=== PATIENT | female | born 1940 | race Caucasian/White ===

== ENCOUNTER 2016-11-01 19:05 | Emergency (ER) | payer MEDICARE, BC ==
[~2016-11-01] VITALS: Ht 157.5 cm; Wt 62.5 kg
[~2016-11-01 19:05] MED LIST: AMLO-168 PO; ASPI325T PO; FERR1TAB58 PO; MACR100C2 PO; METR-1 PO; POTA-163 PO; PROP60TA PO; PROT40TA PO; ROSU1TAB8 PO; VENL75TA PO; ZOFR4TAB3 SL; ZYRT10TA PO
[2016-11-01 19:42] VITALS: BP 124/56; PULSE 59; RESP 18; TEMP 97.7; O2SAT 96
--- NOTE | 2016-11-01 20:11 | PD ---
HPI Chief Complaint: Fall Time Seen by Provider: 19:56 Travel History International Travel<30 days: No Contact w/Intl Traveler<30days: No Traveled to known affect area: No History of Present Illness HPI This 76-year-old female had a fall and sustained a laceration of the left eyebrow. She says she was walking her dog and pulled down by the leash. She hit her head on the sidewalk. We are not sure if there was a loss of consciousness. sHe has had cataract surgery PFSH Past Medical History Hx Anticoagulant Therapy: Yes Arthritis: Yes Depression: Yes Heart Rhythm Problems: No Cancer: Yes (breast) Cardiac Catheterization: Yes Cardiovascular Problems: Yes High Cholesterol: Yes Chemotherapy: Yes Congestive Heart Failure: No Diabetes: No Diminished Hearing: Yes (hearing aids) Endocrine: Yes Gastrointestinal Disorders: Yes GERD: Yes Genitourinary: Yes Hypertension: Yes Immune Disorder: No Implanted Vascular Access Dvce: Yes Musculoskeletal: Yes Neurologic: No Psychiatric: Yes Reproductive: No Respiratory: No Radiation Therapy: Yes Thyroid Disease: No Ulcer: Yes (H pylori) Menopausal: Yes : 6 Para: 2 Miscarriage: 4 Past Surgical History Abdominal Surgery: Yes Body Medical Devices: cardiac stent. Cholecystectomy: Yes Coronary Artery Bypass Graft: No Ear Surgery: No Endocrine Surgery: No Eye Surgery: No Gynecologic Surgery: Yes Hysterectomy: Yes (PARTIAL) Mastectomy: Yes (left lumpectomy) Oral Surgery: No Pacemaker: No Other Surgery: Yes (7 BREAST BIOPSIES) Family History Family Myocardial Infarction: Yes ([place]) Social History Alcohol Use: Yes (WINE ONCE A MONTH) Tobacco Use: Yes (LESS THAN A PPD) Substance Use: No Allergies-Medications (Allergen,Severity, Reaction): Coded Allergies: Sulfa (Verified Allergy, Severe, SORES IN MOUTH, 11/01/16) Ampicillin (Verified Allergy, Mild, Anaphylaxis, 11/01/16) Contrast Media (Verified Allergy, Mild, BOILS ON SKIN, 11/01/16) Iodine (Verified Allergy, Mild, BOILS ON SKIN, 11/01/16) Reported Meds & Prescriptions Reported Meds & Active Scripts Active Zofran Odt (Ondansetron Odt) 4 Mg Tab 4 Mg SL Q6HR PRN Potassium Chloride ER (Potassium Chloride) 20 Meq Tab 20 Meq PO DAILY Flagyl (Metronidazole) 500 Mg Tab 500 Mg PO BID 7 Days Macrobid (Nitrofurantoin Monoh/Nitrofur Macro) 100 Mg Cap 100 Mg PO BID 7 Days Reported Amlodipine-Valsartan 10-160 Mg Tab 1 Tab PO DAILY Rosuvastatin (Rosuvastatin Calcium) 20 Mg Tab 20 Mg PO DAILY Effexor (Venlafaxine HCl) 75 Mg Tab 75 Mg PO DAILY Propranolol (Propranolol HCl) 60 Mg Tab 60 Mg PO Q12HR Iron (Ferrous Sulfate) 50 Mg Tab 65 Mg PO DAILY Zyrtec Allergy (Cetirizine HCl) 10 Mg Tab 10 Mg PO DAILY Aspirin 325 Mg Tab 325 Mg PO DAILY Protonix (Pantoprazole Sodium) 40 Mg Tab 40 Mg PO DAILY Review of Systems General / Constitutional: No: Fever, Chills Eyes: No: Diploplia, Blurred Vision HENT: Positive: Headaches Cardiovascular: No: Chest Pain or Discomfort Respiratory: No: Cough Gastrointestinal: No: Nausea, Vomiting Genitourinary: No: Urgency Skin: No Rash, No Itching Physical Exam Narrative GENERAL: Well-developed female SKIN: Warm and dry. HEAD: . Normocephalic. He is a 2 cm laceration in the left eyebrow EYES: Pupils equal and round. No scleral icterus. No injection or drainage. Left pupil is not reactive. There appears to be an intraocular lens ENT: No nasal bleeding or discharge. Mucous membranes pink and moist. NECK: Trachea midline. No JVD. There is no midline tenderness of the neck CARDIOVASCULAR: Regular rate and rhythm. No murmur appreciated. RESPIRATORY: No accessory muscle use. Clear to auscultation. Breath sounds equal bilaterally. GASTROINTESTINAL: Abdomen soft, non-tender, nondistended. Hepatic and splenic margins not palpable. MUSCULOSKELETAL: No obvious deformities. No clubbing. No cyanosis. No edema. NEUROLOGICAL: Awake and alert. No obvious cranial nerve deficits. Motor grossly within normal limits. Normal speech. PSYCHIATRIC: Appropriate mood and affect; insight and judgment normal. Data Data Last Documented VS Vital Signs Date Time Temp Pulse Resp B/P Pulse Ox O2 Delivery O2 Flow Rate FiO2 11/01/16 20:31 20 11/01/16 19:42 97.7 59 124/56 96 Orders Tetanus/Diphtheria Tox Adult (Tetanus/Di (11/01/16 20:15) Lidocai-Epi 1%-1:100,000 Inj (Xylocaine- (11/01/16 20:15) Ct Brain W/O Iv Contrast(Rout) (11/01/16 20:03) MDM Medical Decision Making Medical Screen Exam Complete: Yes Emergency Medical Condition: Yes Medical Record Reviewed: Yes Differential Diagnosis Differential includes subdural, skull fracture, laceration eyebrow Narrative Course Cervical spine has been cleared by nexus criteria. Tetanus has been updated. CT scan has been read as negative for fracture or hemorrhage. Diagnosis Primary Impression: Laceration of eyebrow Qualified Code: S01.112A - Laceration of eyebrow, left, initial encounter Additional Instructions: suture removal 7 days Disposition: 01 DISCHARGE HOME Condition: Stable Shakir Flores MD Nov 01, 2016 20:11
[2016-11-01] MEDS ORDERED: TETANUS/DIPHTHERIA TOXOID ADULT 0.5 ML VIAL IM ONE (20:15)
[2016-11-01] MEDS ORDERED: LIDOCAINE 1%/EPINEPHrine 1:100,000 SOLN 20 ML VIAL INFIL ONE (20:15)
--- NOTE | 2016-11-01 20:32 | RADHPO ---
EXAM DATE/TIME: 11/01/2016 20:08 [facility] COMPARISON: CT BRAIN W/O CONTRAST, December 15, 2015, 13:17. INDICATIONS : Trauma. Fall. Left frontal laceration. RADIATION DOSE: 61.03 CTDIvol (mGy) MEDICAL HISTORY : Hypertension. SURGICAL HISTORY : None. ENCOUNTER: Initial ACUITY: 1 day PAIN SCALE: 0/10 LOCATION: Left frontal TECHNIQUE: Multiple contiguous axial images were obtained of the head. Using automated exposure control and adj ustment of the mA and/or kV according to patient size, radiation dose was kept as low as reasonably a chievable to obtain optimal diagnostic quality images. FINDINGS: CEREBRUM: The ventricles are normal for age. No evidence of midline shift, mass lesion, hemorrhage or acute in farction. No extra-axial fluid collections are seen. Chronic low attenuation again seen in the periv entricular white matter. POSTERIOR FOSSA: The cerebellum and brainstem are intact. The 4th ventricle is midline. The cerebellopontine angle i s unremarkable. EXTRACRANIAL: Right mastoid sclerosis and considerable opacification of the air cells again noted, similar to befor e. SKULL: The calvaria is intact. No evidence of skull fracture. CONCLUSION: 1. No bleed or other acute intracranial abnormality. 2. Chronic white matter changes. 3. Apparent chronic right mastoiditis. Benjie Kamara MD on November 01, 2016 at 20:29 Board Certified Radiologist. This report was verified electronically.
--- NOTE | 2016-11-01 20:42 | PD ---
Physical Exam Date Seen by Provider: Nov 01, 2016 Time Seen by Provider: 20:39 Narrative Patient seen for fall with laceration to the left eyebrow. I was asked to repair the laceration to the left eyebrow. Dr. Flores's note for further evaluation and treatment. Data Data Last Documented VS Vital Signs Date Time Temp Pulse Resp B/P Pulse Ox O2 Delivery O2 Flow Rate FiO2 11/01/16 20:31 20 11/01/16 19:42 97.7 59 124/56 96 Orders Tetanus/Diphtheria Tox Adult (Tetanus/Di (11/01/16 20:15) Lidocai-Epi 1%-1:100,000 Inj (Xylocaine- (11/01/16 20:15) Ct Brain W/O Iv Contrast(Rout) (11/01/16 20:03) MDM Medical Record Reviewed: Yes Supervised Visit with CARMENCITA: Yes Differential Diagnosis Fall. Laceration. Head injury. Narrative Course Laceration is repaired. See procedure note. Procedures Procedure Narrative LACERATION LOCATION: Left eyebrow LENGTH: 3 cm NUMBER OF STITCHES/JANE: 1 vertical mattress and 2 interrupted horizontal mattress REPAIR: The area of the laceration was prepped with Betadine and sterilely draped. The laceration was infiltrated with 2.5 mL's 1% lidocaine with epi.. The wound was copiously irrigated and explored without evidence of foreign body , tendon injury or neurovascular injury. The wound was closed using 5-0 Prolene. This was a single layer repair. The patient was advised to keep the wound clean and dry. Patient tolerated the procedure well. LACERATION LOCATION: Left lateral eyebrow LENGTH: 0.5 cm NUMBER OF STITCHES/JANE: 1 horizontal mattress REPAIR: The area of the laceration was prepped with Betadine and sterilely draped. The laceration was infiltrated with 1.5 mL's 1% lidocaine with epi the wound was copiously irrigated and explored without evidence of foreign body, tendon injury or neurovascular injury. The wound was closed using 5-0 Prolene. This was a single layer repair. A sterile dressing was applied. The patient was advised to keep the dressing clean and dry. Patient tolerated the procedure well. Condition: Stable Rey Thornton Nov 01, 2016 20:42
[2016-11-01 21:24] VITALS: BP 135/59
== END 2016-11-01 21:27 | disposition home or self-care (01) ==
LOC: PHED 19:05
DX: S01.112A Laceration without foreign body of left eyelid and periocular area, initial encounter (principal); I10 Essential (primary) hypertension; E78.00 Pure hypercholesterolemia, unspecified; Y93.K1 Activity, walking an animal; W18.39XA Other fall on same level, initial encounter; Y93.9 Activity, unspecified; Y92.9 Unspecified place or not applicable; Y99.9 Unspecified external cause status; Z23 Encounter for immunization
CPT/HCPCS: 12013; 70450; 90471; 90714

== ENCOUNTER 2016-11-08 12:05 | Emergency (ER) | payer MEDICARE, BC ==
[~2016-11-08] VITALS: Ht 157.5 cm; Wt 61.0 kg
[2016-11-08 12:11] VITALS: BP 145/76; PULSE 68; RESP 20; TEMP 97.7; O2SAT 96
--- NOTE | 2016-11-08 12:21 | PD ---
HPI . suture removal Chief Complaint: Wound/Suture/Staple Re-Check Time Seen by Provider: 12:21 Travel History International Travel<30 days: No Contact w/Intl Traveler<30days: No Traveled to known affect area: No History of Present Illness HPI 76-year-old female here for suture removal. Sutures were placed on November 01, 2016. Total of 4 sutures were placed. She has no complaints. The area has healed well. PFSH Past Medical History Hx Anticoagulant Therapy: Yes Arthritis: Yes Depression: Yes Heart Rhythm Problems: No Cancer: Yes (breast) Cardiac Catheterization: Yes Cardiovascular Problems: Yes High Cholesterol: Yes Chemotherapy: Yes Congestive Heart Failure: No Diabetes: No Diminished Hearing: Yes (hearing aids) Endocrine: Yes Gastrointestinal Disorders: Yes GERD: Yes Genitourinary: Yes Hypertension: Yes Immune Disorder: No Implanted Vascular Access Dvce: Yes Musculoskeletal: Yes Neurologic: No Psychiatric: Yes Reproductive: No Respiratory: No Radiation Therapy: Yes Thyroid Disease: No Ulcer: Yes (H pylori) ?: Not Menopausal: Yes : 6 Para: 2 Miscarriage: 4 Past Surgical History Abdominal Surgery: Yes Body Medical Devices: cardiac stent. Cholecystectomy: Yes Coronary Artery Bypass Graft: No Ear Surgery: No Endocrine Surgery: No Eye Surgery: No Gynecologic Surgery: Yes Hysterectomy: Yes (PARTIAL) Mastectomy: Yes (left lumpectomy) Oral Surgery: No Pacemaker: No Other Surgery: Yes (7 BREAST BIOPSIES) Social History Alcohol Use: Yes (WINE ONCE A MONTH) Tobacco Use: Yes (LESS THAN A PPD) Substance Use: No Allergies-Medications (Allergen,Severity, Reaction): Coded Allergies: Sulfa (Verified Allergy, Severe, SORES IN MOUTH, 11/08/16) Ampicillin (Verified Allergy, Mild, Anaphylaxis, 11/08/16) Contrast Media (Verified Allergy, Mild, BOILS ON SKIN, 11/08/16) Iodine (Verified Allergy, Mild, BOILS ON SKIN, 11/08/16) Reported Meds & Prescriptions Reported Meds & Active Scripts Active Zofran Odt (Ondansetron Odt) 4 Mg Tab 4 Mg SL Q6HR PRN Potassium Chloride ER (Potassium Chloride) 20 Meq Tab 20 Meq PO DAILY Flagyl (Metronidazole) 500 Mg Tab 500 Mg PO BID 7 Days Macrobid (Nitrofurantoin Monoh/Nitrofur Macro) 100 Mg Cap 100 Mg PO BID 7 Days Reported Amlodipine-Valsartan 10-160 Mg Tab 1 Tab PO DAILY Rosuvastatin (Rosuvastatin Calcium) 20 Mg Tab 20 Mg PO DAILY Effexor (Venlafaxine HCl) 75 Mg Tab 75 Mg PO DAILY Propranolol (Propranolol HCl) 60 Mg Tab 60 Mg PO Q12HR Iron (Ferrous Sulfate) 50 Mg Tab 65 Mg PO DAILY Zyrtec Allergy (Cetirizine HCl) 10 Mg Tab 10 Mg PO DAILY Aspirin 325 Mg Tab 325 Mg PO DAILY Protonix (Pantoprazole Sodium) 40 Mg Tab 40 Mg PO DAILY Review of Systems General / Constitutional: No: Fever Eyes: No: Visual changes HENT: No: Headaches Cardiovascular: No: Chest Pain or Discomfort Respiratory: No: Shortness of Breath Gastrointestinal: No: Abdominal Pain Genitourinary: No: Dysuria Musculoskeletal: No: Pain Skin: No Rash Neurologic: No: Weakness Psychiatric: No: Depression Endocrine: No: Polydipsia Hematologic/Lymphatic: No: Easy Bruising Physical Exam Narrative GENERAL: AAO x 3, no acute distress, Well-nourished, well-developed patient. SKIN: Warm and dry. No visible rashes or bruising. 4 sutures in left eye brow, healed well, no wound dehiscence, ecchymosis is resolving around the left eye HEAD: Normocephalic and atraumatic. EYES: No scleral icterus. No injection or drainage. ENT: No nasal drainage noted. Mucous membranes pink. Airway patent. NECK: Supple, trachea midline. No JVD. CARDIOVASCULAR: Regular rate and rhythm without murmurs, gallops, or rubs. RESPIRATORY: Breath sounds equal bilaterally. No accessory muscle use. No rhonchi or rales. GASTROINTESTINAL: Abdomen soft, non-tender, nondistended. EXTREMITIES: No cyanosis or edema. BACK: Nontender without obvious deformity. No CVA tenderness. PSYCH: AAO x 3, normal affect. Data Data Last Documented VS Vital Signs Date Time Temp Pulse Resp B/P Pulse Ox O2 Delivery O2 Flow Rate FiO2 11/08/16 12:11 97.7 68 20 145/76 96 MDM Medical Decision Making Medical Screen Exam Complete: Yes Emergency Medical Condition: Yes Medical Record Reviewed: Yes Differential Diagnosis Suture removal, wound dehiscence, cellulitis Narrative Course 76-year-old female here for suture removal. Sutures were placed on November 01, 2016. Total of 4 sutures were placed. She has no complaints. The area has healed well. Patient seen and examined. Wound is healed without any evidence of dehiscence or cellulitis 4 sutures removed Patient tolerated without incident Patient verbalized understanding of instructions, questions were answered, and thanked me for their care. I advised them if their condition worsens, please return to the nearest emergency room for further care. Diagnosis Primary Impression: Encounter for removal of sutures Patient Instructions: General Instructions Additional Instructions: Please return to emergency department if your symptoms return or worsen. Follow up with your primary care provider. Med/Other Pt SpecificInfo: No Change to Meds Disposition: 01 DISCHARGE HOME Condition: Stable Joann Chairez Nov 08, 2016 12:21
== END 2016-11-08 12:35 | disposition home or self-care (01) ==
LOC: PHEFT 12:05
DX: Z48.02 Encounter for removal of sutures (principal)
CPT/HCPCS: 99281

== ENCOUNTER 2017-05-27 15:07 | Emergency (ER) | payer MEDICARE, BC ==
[~2017-05-27] VITALS: Ht 160 cm; Wt 70.0 kg
[2017-05-27 15:20] VITALS: BP 173/72; PULSE 67; RESP 14; TEMP 98.7; O2SAT 98
[2017-05-27 15:30] VITALS: O2SAT 98
[2017-05-27 15:47] LABS: AUTOMATED NEUTROPHIL # 4.8 TH/MM3 (1.8-7.7); BASOPHIL % 0.5 % (0.0-2.0); EOSINOPHIL # 0.2 TH/MM3 (0-0.4); EOSINOPHIL % 3.1 % (0.0-4.0); HEMATOCRIT 42.9 % (35.0-46.0); HEMO FLAGS DIFF FINAL; LYMPH % 17.7 % (9.0-44.0); LYMPHOCYTE # 1.2 TH/MM3 (1.0-4.8); MEAN CELL VOLUME 104.6 FL (80.0-100.0); MEAN CORPUSCULAR HEMOGLOBIN 35.4 PG (27.0-34.0); MEAN CORPUSCULAR HGB CONC 33.8 % (32.0-36.0); MONO % 5.4 % (0.0-8.0); NEUT % 73.3 % (16.0-70.0); PLATELET COUNT 187 TH/MM3 (150-450); RED CELL DISTRIBUTION WIDTH 15.4 % (11.6-17.2); WHITE BLOOD COUNT 6.6 TH/MM3 (4.0-11.0)
[2017-05-27 15:57] LABS: POTASSIUM 3.5 MEQ/L (3.5-5.1)
[2017-05-27 16:01] LABS: BICARBONATE 23.6 MEQ/L (21.0-32.0)
--- NOTE | 2017-05-27 16:03 | PD ---
HPI Chief Complaint: Dizziness Time Seen by Provider: 15:18 Travel History International Travel<30 days: No Contact w/Intl Traveler<30days: No Traveled to known affect area: No History of Present Illness HPI 77 y/o female presents with getting lightheaded and nauseous that started this morning at 10:30. She states she had not eaten breakfast but that is typical for her when she went to make herself lunch and she progressively got worse and had to start crawling. She called 911 and they brought her in this afternoon. She states she did not fall down or hit her head. She states she feels fine here at rest but is nervous to get up as this may make her symptoms recur. She states that she had only had a glass of iced tea all day today. She denies any other concurrent complaints. PFSH Past Medical History Hx Anticoagulant Therapy: Yes Arthritis: Yes Depression: Yes Heart Rhythm Problems: No Cancer: Yes (breast) Cardiac Catheterization: Yes Cardiovascular Problems: Yes High Cholesterol: Yes Chemotherapy: Yes Congestive Heart Failure: No Diabetes: No Diminished Hearing: Yes (hearing aids) Endocrine: Yes Gastrointestinal Disorders: Yes GERD: Yes Genitourinary: Yes Hypertension: Yes Immune Disorder: No Implanted Vascular Access Dvce: Yes Musculoskeletal: Yes Neurologic: No Psychiatric: Yes Reproductive: No Respiratory: No Radiation Therapy: Yes Thyroid Disease: No Ulcer: Yes (H pylori) Tetanus Vaccination: < 5 Years Influenza Vaccination: Yes Menopausal: Yes : 6 Para: 2 Miscarriage: 4 Past Surgical History Abdominal Surgery: Yes Body Medical Devices: cardiac stent. Cholecystectomy: Yes Coronary Artery Bypass Graft: No Ear Surgery: No Endocrine Surgery: No Eye Surgery: No Gynecologic Surgery: Yes Hysterectomy: Yes (PARTIAL) Mastectomy: Yes (left lumpectomy) Oral Surgery: No Pacemaker: No Other Surgery: Yes (7 BREAST BIOPSIES, LUMPECTOMY X 7) Family History Family Myocardial Infarction: Yes ([place]) Social History Alcohol Use: Yes (WINE ONCE A MONTH) Tobacco Use: Yes (1 PPD) Substance Use: No Allergies-Medications (Allergen,Severity, Reaction): Coded Allergies: Sulfa (Sulfonamide Antibiotics) (Unverified Allergy, Severe, SORES IN MOUTH, 04/11/17) ampicillin (Unverified Allergy, Mild, Anaphylaxis, 04/11/17) diatrizoate meglumine (Unverified Allergy, Mild, BOILS ON SKIN, 04/11/17) gadobenic acid (Unverified Allergy, Mild, BOILS ON SKIN, 04/11/17) gadodiamide (Unverified Allergy, Mild, BOILS ON SKIN, 04/11/17) gadoteridol (Unverified Allergy, Mild, BOILS ON SKIN, 04/11/17) iodine (Unverified Allergy, Mild, BOILS ON SKIN, 04/11/17) iodixanol (Unverified Allergy, Mild, BOILS ON SKIN, 04/11/17) iohexol (Unverified Allergy, Mild, BOILS ON SKIN, 04/11/17) potassium iodide (Unverified Allergy, Mild, BOILS ON SKIN, 04/11/17) povidone-iodine (Unverified Allergy, Mild, BOILS ON SKIN, 04/11/17) sodium iodide (Unverified Allergy, Mild, BOILS ON SKIN, 04/11/17) sodium iodide (Unverified Allergy, Mild, BOILS ON SKIN, 04/11/17) Reported Meds & Prescriptions Reported Meds & Active Scripts Active Zofran Odt (Ondansetron Odt) 4 Mg Tab 4 Mg SL Q6HR PRN Potassium Chloride ER (Potassium Chloride) 20 Meq Tab 20 Meq PO DAILY Flagyl (Metronidazole) 500 Mg Tab 500 Mg PO BID 7 Days Macrobid (Nitrofurantoin Monoh/Nitrofur Macro) 100 Mg Cap 100 Mg PO BID 7 Days Reported Amlodipine-Valsartan 10-160 Mg Tab 1 Tab PO DAILY Rosuvastatin (Rosuvastatin Calcium) 20 Mg Tab 20 Mg PO DAILY Effexor (Venlafaxine HCl) 75 Mg Tab 75 Mg PO DAILY Propranolol (Propranolol HCl) 60 Mg Tab 60 Mg PO Q12HR Iron (Ferrous Sulfate) 50 Mg Tab 65 Mg PO DAILY Zyrtec Allergy (Cetirizine HCl) 10 Mg Tab 10 Mg PO DAILY Aspirin 325 Mg Tab 325 Mg PO DAILY Protonix (Pantoprazole Sodium) 40 Mg Tab 40 Mg PO DAILY Review of Systems Except as stated in HPI: all other systems reviewed are Neg Physical Exam Narrative GENERAL: Well-nourished, well-developed patient. SKIN: Warm and dry. HEAD: Normocephalic and atraumatic. EYES: No injection or drainage. ENT: No nasal drainage noted. NECK: Supple, trachea midline. CARDIOVASCULAR: Regular rate and rhythm RESPIRATORY: Breath sounds equal bilaterally. No accessory muscle use. GASTROINTESTINAL: Abdomen soft, non-tender, nondistended. EXTREMITIES: No edema. NEUROLOGICAL: Awake and alert. Motor and sensory grossly within normal limits. Normal speech. 5 out of 5 in all 4 extremities Data Data Last Documented VS Vital Signs Date Time Temp Pulse Resp B/P (MAP) Pulse Ox O2 Delivery O2 Flow Rate FiO2 05/27/17 18:14 60 14 170/74 (106) 98 Room Air 05/27/17 15:20 98.7 Orders Orders Magnesium (Mg) (05/27/17 15:26) Phosphorus (Po4) (05/27/17 15:26) Complete Blood Count With Diff (05/27/17 15:26) Basic Metabolic Panel (Bmp) (05/27/17 15:26) Urinalysis - C+S If Indicated (05/27/17 15:26) Act Partial Throm Time (Ptt) (05/27/17 15:26) Prothrombin Time / Inr (Pt) (05/27/17 15:26) Electrocardiogram (05/27/17 ) Iv Access Insert/Monitor (05/27/17 15:26) Ecg Monitoring (05/27/17 15:26) Oximetry (05/27/17 15:26) Ckmb (Isoenzyme) Profile (05/27/17 15:39) Troponin I (05/27/17 15:39) Chest, Single Ap (05/27/17 15:39) Type And Screen (05/27/17 15:39) Ct Brain W/O Iv Contrast(Rout) (05/27/17 ) Sodium Chlor 0.9% 1000 Ml Inj (Ns 1000 M (05/27/17 17:45) Red Blood Cells (Rbc) (05/27/17 15:40) Labs Laboratory Tests Test 05/27/17 15:32 05/27/17 15:37 05/27/17 16:10 White Blood Count 6.6 TH/MM3 Red Blood Count 4.10 MIL/MM3 Hemoglobin 14.5 GM/DL Hematocrit 42.9 % Mean Corpuscular Volume 104.6 FL Mean Corpuscular Hemoglobin 35.4 PG Mean Corpuscular Hemoglobin Concent 33.8 % Red Cell Distribution Width 15.4 % Platelet Count 187 TH/MM3 Mean Platelet Volume 8.4 FL Neutrophils (%) (Auto) 73.3 % Lymphocytes (%) (Auto) 17.7 % Monocytes (%) (Auto) 5.4 % Eosinophils (%) (Auto) 3.1 % Basophils (%) (Auto) 0.5 % Neutrophils # (Auto) 4.8 TH/MM3 Lymphocytes # (Auto) 1.2 TH/MM3 Monocytes # (Auto) 0.4 TH/MM3 Eosinophils # (Auto) 0.2 TH/MM3 Basophils # (Auto) 0.0 TH/MM3 CBC Comment DIFF FINAL Differential Comment Prothrombin Time 10.8 SEC Prothromb Time International Ratio 1.0 RATIO Activated Partial Thromboplast Time 27.5 SEC Blood Urea Nitrogen 10 MG/DL Creatinine 0.86 MG/DL Random Glucose 101 MG/DL Calcium Level 8.6 MG/DL Phosphorus Level 2.6 MG/DL Magnesium Level 2.0 MG/DL Sodium Level 140 MEQ/L Potassium Level 3.5 MEQ/L Chloride Level 109 MEQ/L Carbon Dioxide Level 23.6 MEQ/L Anion Gap 7 MEQ/L Estimat Glomerular Filtration Rate 64 ML/MIN Total Creatine Kinase 57 U/L Troponin I LESS THAN 0.02 NG/ML Urine Color YELLOW Urine Turbidity CLEAR Urine pH 6.0 Urine Specific [place] 1.011 Urine Protein 30 mg/dL Urine Glucose (UA) NEG mg/dL Urine Ketones NEG mg/dL Urine Occult Blood SMALL Urine Nitrite NEG Urine Bilirubin NEG Urine Leukocyte Esterase NEG Urine RBC 3-5 /hpf Urine WBC 0-2 /hpf Urine Squamous Epithelial Cells > 8 /hpf Urine Bacteria NONE /hpf Microscopic Urinalysis Comment CULT NOT INDICATED MDM Medical Decision Making Medical Screen Exam Complete: Yes Emergency Medical Condition: Yes Medical Record Reviewed: Yes (h confirmed) Interpretation(s) CBC & BMP Diagram 05/27/17 15:32 Calcium Level 8.6, Phosphorus Level 2.6, Magnesium Level 2.0 Differential Diagnosis Anemia, dehydration, hypoglycemia, orthostatic hypotension, UTI.... Narrative Course Will check labs, urinalysis, chest x-ray, CT brain and reevaluate ed workup no emergent, offered patient observation but wanting to go, denies any dizziness or concerns now.Patient denies any new complaints and states that they are feeling better. Patient happy with care, all questions answered. Patient knows that follow up is incumbent on them and to return to the emergency room immediately if new or worsening symptoms develop. Patient given strict return precautions, vitals reviewed and are normal, agrees to further workup as an outpatient. Diagnosis Primary Impression: Dizziness Patient Instructions: General Instructions Additional Instructions: Return as needed, eat 3 meals a day, keep hydrated, follow with primary Monday Med/Other Pt SpecificInfo: No Change to Meds Disposition: 01 DISCHARGE HOME Condition: Stable Mirella Maravilla MD May 27, 2017 16:03
[2017-05-27 16:19] VITALS: BP 175/81; PULSE 67; RESP 14; O2SAT 95
--- NOTE | 2017-05-27 16:37 | RADRPT ---
EXAM DATE/TIME: 05/27/2017 16:15 [facility] COMPARISON: CHEST SINGLE AP, December 15, 2015, 14:15. INDICATIONS : Dizziness. MEDICAL HISTORY : Hypertension. SURGICAL HISTORY : None. ENCOUNTER: Initial ACUITY: 1 day PAIN SCORE: 0/10 LOCATION: Bilateral chest FINDINGS: A single view of the chest demonstrates the lungs to be symmetrically aerated without evidence of mas s, infiltrate or effusion. The central bronchopulmonary markings are will delineated. The heart is normal size for AP technique. Osseous structures are intact. CONCLUSION: The lungs are clear. Chavez De Dios MD on May 27, 2017 at 16:35 Board Certified Radiologist. This report was verified electronically.
[2017-05-27 16:39] LABS: CREATINE KINASE 57 U/L (26-192)
--- NOTE | 2017-05-27 16:45 | RADRPT ---
EXAM DATE/TIME: 05/27/2017 16:30 [facility] COMPARISON: CT BRAIN W/O CONTRAST, November 01, 2016, 20:08. INDICATIONS : Dizziness.Nausea. RADIATION DOSE: 60.89 CTDIvol (mGy) MEDICAL HISTORY : Cardiovascular disease. Hypercholesterolemia. Hypertension.Ca breast SURGICAL HISTORY : Cholecystectomy. 7 lumpectomies. ENCOUNTER: Initial ACUITY: 1 day PAIN SCALE: 0/10 LOCATION: cranial TECHNIQUE: Multiple contiguous axial images were obtained of the head. Using automated exposure control and adj ustment of the mA and/or kV according to patient size, radiation dose was kept as low as reasonably a chievable to obtain optimal diagnostic quality images. DICOM format image data is available electro nically for review and comparison. FINDINGS: CEREBRUM: Ventricles are normal in size. Scattered areas of hypodensity in the mid and high convexity white ma tter, characteristic of ischemic change, is stable when compared to 11/01/16. There is good campos-white matter differentiation. No evidence of blood products, acute infarction, or mass. No evidence of e xtra-axial blood. POSTERIOR FOSSA: The cerebellum and brainstem are intact. The 4th ventricle is midline. The cerebellopontine angle i s unremarkable. EXTRACRANIAL: The visualized portion of the orbits is intact. SKULL: The calvaria is intact. No evidence of skull fracture. CONCLUSION: No acute findings in the brain. Chavez De Dios MD on May 27, 2017 at 16:42 Board Certified Radiologist. This report was verified electronically.
[2017-05-27 16:48] LABS: APTT (PATIENT) 27.5 SEC (24.3-30.1); PROTHROMBIN TIME - PATIENT 10.8 SEC (9.8-11.6)
[2017-05-27] MEDS ORDERED: SODIUM CHLOR 0.9% 1000 ML INJ 1,000 ML IV ONE (17:45)
[2017-05-27 17:48] VITALS: BP 165/77; PULSE 61; RESP 16; O2SAT 96
[2017-05-27 18:05] LABS: BLOOD, URINE SMALL (NEG); GLUCOSE,URINE NEG (NEG); KETONE, URINE NEG (NEG); NITRITE,URINE NEG (NEG)
[2017-05-27 18:14] VITALS: BP 170/74; PULSE 60; RESP 14; O2SAT 98
[2017-05-27 18:14] LABS: URINE COLOR YELLOW (YELLW/STRAW)
[2017-05-27 18:15] LABS: COMMENT (UR) CULT NOT INDICATED; CULTURE IF INDICATED CULT NOT INDICATED; SQUAMOUS EPITHELIAL CELL URINE > 8 /hpf (0-5); WBC, URINE 0-2 /hpf (0-5)
--- NOTE | 2017-05-28 01:19 | EKG ---
Date Performed: 05/27/2017 Time Performed: 15:49:39 PTAGE: 77 years EKG: SINUS BRADYCARDIA BORDERLINE ECG PREVIOUS TRACING : 12/15/2015 21.51 No significant change from previous tracing noted. DOCTOR: Teofilo Solano Interpretating Date/Time 05/28/2017 01:18:56
== END 2017-05-27 19:35 | disposition home or self-care (01) ==
LOC: PHED 15:07
DX: R42 Dizziness and giddiness (principal); R11.0 Nausea; R94.31 Abnormal electrocardiogram [ECG] [EKG]; I10 Essential (primary) hypertension; E78.00 Pure hypercholesterolemia, unspecified; H91.90 Unspecified hearing loss, unspecified ear; F17.200 Nicotine dependence, unspecified, uncomplicated; Z79.01 Long term (current) use of anticoagulants; Z87.39 Personal history of other diseases of the musculoskeletal system and connective tissue; Z86.59 Personal history of other mental and behavioral disorders; Z85.3 Personal history of malignant neoplasm of breast; Z86.79 Personal history of other diseases of the circulatory system; Z87.19 Personal history of other diseases of the digestive system; Z87.448 Personal history of other diseases of urinary system
CPT/HCPCS: 70450; 71010; 80048; 81001; 82550; 83735; 84100; 84484; 85025; 85610; 85730; 86850; 86900; 86901; 86920; 86921; 86922; 93005; 96360; 96361; 99285; J7030

== ENCOUNTER 2018-01-22 16:29 | Emergency (ER) | payer MEDICARE, BC ==
[~2018-01-22 16:29] MED LIST changes: +ASPI-183 PO; -ASPI325T PO
[2018-01-22 16:31] VITALS: BP 110/63; PULSE 66; RESP 16; TEMP 97.6; O2SAT 98
[2018-01-22] MEDS ORDERED: TRAZ50TA12 PO (16:48)
--- NOTE | 2018-01-22 16:59 | PD ---
HPI Chief Complaint: Laceration/Skin Injury Time Seen by Provider: 16:52 Travel History International Travel<30 days: No Contact w/Intl Traveler<30days: No Traveled to known affect area: No History of Present Illness HPI 77-year-old female here with a laceration to her scalp after a trip and fall yesterday evening. She reports she was walking out of the bathroom and tripped over the bathroom rug hitting her head on the door jam. She denies loss of consciousness but reports she was drinking at the time. She reports she showered cleansing the wound and covered with a towel. Today the wound was still bleeding therefore she came in for evaluation. She is reporting a mild generalized headache. Denies visual changes. No vomiting since the injury. No neck pain, chest pain, shortness of breath, abdominal pain, paresthesia or weakness of the extremities. Symptom severity is moderate. No aggravating or alleviating factors. PFSH Past Medical History Hx Anticoagulant Therapy: Yes Arthritis: Yes Depression: Yes Heart Rhythm Problems: No Cancer: Yes (breast) Cardiac Catheterization: Yes Cardiovascular Problems: Yes High Cholesterol: Yes Chemotherapy: Yes Congestive Heart Failure: No Diabetes: No Diminished Hearing: Yes (hearing aids) Endocrine: Yes Gastrointestinal Disorders: Yes GERD: Yes Genitourinary: Yes Hypertension: Yes Immune Disorder: No Implanted Vascular Access Dvce: Yes Musculoskeletal: Yes Neurologic: No Psychiatric: Yes Reproductive: No Respiratory: No Radiation Therapy: Yes Thyroid Disease: No Ulcer: Yes (H pylori) Menopausal: Yes : 6 Para: 2 Miscarriage: 4 Past Surgical History Abdominal Surgery: Yes Body Medical Devices: cardiac stent. Cholecystectomy: Yes Coronary Artery Bypass Graft: No Ear Surgery: No Endocrine Surgery: No Eye Surgery: No Gynecologic Surgery: Yes Hysterectomy: Yes (PARTIAL) Mastectomy: Yes (left lumpectomy) Oral Surgery: No Pacemaker: No Other Surgery: Yes (7 BREAST BIOPSIES, LUMPECTOMY X 7) Family History Family Myocardial Infarction: Yes ([place]) Social History Alcohol Use: Yes Tobacco Use: Yes (1 PPD) Substance Use: No Allergies-Medications (Allergen,Severity, Reaction): Coded Allergies: Sulfa (Sulfonamide Antibiotics) (Unverified Allergy, Severe, SORES IN MOUTH, 01/22/18) ampicillin (Unverified Allergy, Mild, Anaphylaxis, 01/22/18) diatrizoate meglumine (Unverified Allergy, Mild, BOILS ON SKIN, 01/22/18) gadobenic acid (Unverified Allergy, Mild, BOILS ON SKIN, 01/22/18) gadodiamide (Unverified Allergy, Mild, BOILS ON SKIN, 01/22/18) gadoteridol (Unverified Allergy, Mild, BOILS ON SKIN, 01/22/18) iodine (Unverified Allergy, Mild, BOILS ON SKIN, 01/22/18) iodixanol (Unverified Allergy, Mild, BOILS ON SKIN, 01/22/18) iohexol (Unverified Allergy, Mild, BOILS ON SKIN, 01/22/18) potassium iodide (Unverified Allergy, Mild, BOILS ON SKIN, 01/22/18) povidone-iodine (Unverified Allergy, Mild, BOILS ON SKIN, 01/22/18) sodium iodide (Unverified Allergy, Mild, BOILS ON SKIN, 01/22/18) sodium iodide (Unverified Allergy, Mild, BOILS ON SKIN, 01/22/18) Reported Meds & Prescriptions Reported Meds & Active Scripts Active Reported Trazodone (Trazodone HCl) 50 Mg Tab 50 Mg PO HS Amlodipine-Valsartan 10-160 Mg Tab 1 Tab PO DAILY Rosuvastatin (Rosuvastatin Calcium) 20 Mg Tab 20 Mg PO DAILY Propranolol (Propranolol HCl) 60 Mg Tab 60 Mg PO Q12HR Aspirin 325 Mg Tab 325 Mg PO DAILY Review of Systems Except as stated in HPI: all other systems reviewed are Neg General / Constitutional: No: Fever Eyes: No: Visual changes HENT: Positive: Headaches Cardiovascular: No: Chest Pain or Discomfort Respiratory: No: Shortness of Breath Gastrointestinal: No: Abdominal Pain Genitourinary: No: Dysuria Musculoskeletal: No: Pain Skin: No Rash Physical Exam Narrative GENERAL: Alert and well-appearing 77-year-old female. Patient smells of alcohol SKIN: Warm and dry. HEAD: Normocephalic. Large 10 cm flap laceration to the scalp EYES: Pupils equal, round, reactive to light. EOMs intact. No scleral icterus. No injection or drainage. NECK: Supple, trachea midline. No midline spine tenderness. Patient freely moving the neck. CARDIOVASCULAR: Regular rate and rhythm. No murmur appreciated. No chest wall tenderness. RESPIRATORY: Breath sounds equal bilaterally. No accessory muscle use. Even and equal chest rise. GASTROINTESTINAL: Abdomen soft, non-tender, nondistended. MUSCULOSKELETAL: No cyanosis, or edema. Normal strength and sensation in extremities BACK: Nontender without obvious deformity. No CVA tenderness. NEUROLOGICAL: Awake and alert. No obvious cranial nerve deficit. Motor and sensory grossly within normal limits. Five out of 5 muscle strength in all muscle groups. Normal speech. Data Data Last Documented VS Vital Signs Date Time Temp Pulse Resp B/P (MAP) Pulse Ox O2 Delivery O2 Flow Rate FiO2 01/22/18 16:31 97.6 66 16 110/63 (79) [address] Brain W/O Iv Contrast(Rout) (01/22/18 ) Ct Cerv Spine W/O Contrast (01/22/18 ) [facility] Medical Decision Making Medical Screen Exam Complete: Yes Emergency Medical Condition: Yes Differential Diagnosis Scalp laceration, ICH, cervical strain, cervical fracture Narrative Course 77-year-old female here with a large 10 cm flap laceration to the scalp caused by trip and fall. She is neurologically intact. CT of the brain and cervical spine ordered and pending CT of the brain negative for intracranial abnormality CT cervical spine negative for fracture Laceration was thoroughly irrigated and repair performed. Patient tolerated procedure well. Patient was placed on prophylactic antibiotics due to the age of the wound. Procedures Procedure Narrative Laceration repair performed by [employer] medical student under my supervision. Wound was copiously irrigated. LACERATION LOCATION: Scalp LENGTH: 10 cm NUMBER OF STITCHES/MINA: 12 REPAIR: The area of the laceration was prepped with Betadine and sterilely draped. The laceration was infiltrated with 1% lidocaine. The wound was copiously irrigated and explored without evidence of foreign body, tendon injury or neurovascular injury. The wound was closed using mina. This was a single layer repair. A sterile dressing was applied. The patient was advised to keep the dressing clean and dry. Patient tolerated the procedure well. Diagnosis Primary Impression: Scalp laceration Qualified Codes: S01.01XA - Laceration without foreign body of scalp, initial encounter Additional Impression: Head injury Qualified Codes: S09.90XA - Unspecified injury of head, initial encounter Referrals: Primary Care Physician Additional Instructions: Follow-up with your primary doctor for recheck this week. Mina need to be removed in 10 days. Return to emergency department if you develop severe headache, confusion, nausea vomiting, visual changes Scripts Doxycycline Hyclate (Doxycycline Hyclate) 100 Mg Cap 100 MG PO BID for Infection, #14 CAP 0 Refills Prov: Janet Jones 01/22/18 Disposition: 01 DISCHARGE HOME Condition: Stable Janet Jones January 22, 2018 16:58
--- NOTE | 2018-01-22 17:31 | RADRPT ---
EXAM DATE: 01/22/2018 5:23 PM EDT AGE/SEX: 77 years / Female INDICATIONS: Trauma, hit head on doorframe today. Laceration to right superior head. CLINICAL DATA: This is the patient's initial encounter. Patient reports that signs and symptoms have been present for 1 day and indicates a pain score of 6/10. MEDICAL/SURGICAL HISTORY: Hypertension. Carcinoma, breast. Hysterectomy. RADIATION DOSE: 56.47 CTDI (mGy) COMPARISON: [facility], CT BRAIN W/O CONTRAST, 05/27/2017. . TECHNIQUE: CT of the head without contrast. Using automated exposure control and adjustment of the mA and/or kV according to patient size, radiation dose was kept as low as reasonably achievable to ob tain optimal diagnostic quality images. FINDINGS: Cerebrum: The ventricles are normal for age. No evidence of midline shift, mass lesion, hemorrhage or acute infarction. No extraaxial fluid collections are seen. Posterior Fossa: The cerebellum and brainstem are intact. The 4th ventricle is midline. The cerebe llopontine angle is unremarkable. Extracranial: The visualized portion of the orbits is intact. Skull: The calvaria is intact. No evidence of skull fracture. CONCLUSION: 1. No acute intracranial abnormalities. Mild white matter ischemic changes. Electronically signed by: Marco Boudreaux MD 01/22/2018 5:30 PM EDT
--- NOTE | 2018-01-22 17:49 | RADRPT ---
EXAM DATE: 01/22/2018 5:31 PM EDT AGE/SEX: 77 years / Female INDICATIONS: Trauma, hit head on doorframe today. Laceration to right superior head. CLINICAL DATA: This is the patient's initial encounter. Patient reports that signs and symptoms have been present for 1 day and indicates a pain score of 6/10. MEDICAL/SURGICAL HISTORY: Hypertension. Carcinoma, breast. Gastroesophageal reflux disease. H ysterectomy. RADIATION DOSE: 26.23 CTDI (mGy) COMPARISON: No prior [place] exams available for comparison. TECHNIQUE: Contiguous axial images were obtained using helical multirow detector technique. The vol umetric data was post-processed with multiplanar reconstruction in oblique axial, sagittal, and coron al planes. Using automated exposure control and adjustment of the mA and/or kV according to patient s ize, radiation dose was kept as low as reasonably achievable to obtain optimal diagnostic quality oscar ges. FINDINGS: There is moderate to severe degenerative disc disease and facet arthropathy. There is a minimal degen erative anterolisthesis of C4 on C5. No acute fracture. No prevertebral soft tissue swelling. There i s no significant bony canal stenosis. Multilevel foraminal encroachment present. CONCLUSION: 1. No acute findings. Moderate degenerative disc disease and facet arthropathy. Electronically signed by: Marco Boudreaux MD 01/22/2018 5:48 PM EDT
[2018-01-22] MEDS ORDERED: DOXY100C PO (18:45)
== END 2018-01-22 19:27 | disposition home or self-care (01) ==
LOC: PHEFT 16:29
DX: S01.01XA Laceration without foreign body of scalp, initial encounter (principal); W01.0XXA Fall on same level from slipping, tripping and stumbling without subsequent striking against object, initial encounter; F32.9 Major depressive disorder, single episode, unspecified; E78.00 Pure hypercholesterolemia, unspecified; I10 Essential (primary) hypertension; K21.9 Gastro-esophageal reflux disease without esophagitis; Z85.3 Personal history of malignant neoplasm of breast; Z95.5 Presence of coronary angioplasty implant and graft; F17.200 Nicotine dependence, unspecified, uncomplicated
CPT/HCPCS: 12004; 70450; 72125

== ENCOUNTER 2018-02-03 11:40 | Emergency (ER) | payer MEDICARE, BC ==
[~2018-02-03] VITALS: Ht 162.6 cm; Wt 60.0 kg
[~2018-02-03 11:40] MED LIST changes: +DOXY100C PO; -FERR1TAB58 PO; -MACR100C2 PO; -METR-1 PO; -POTA-163 PO; -PROT40TA PO; +TRAZ50TA12 PO; -VENL75TA PO; -ZOFR4TAB3 SL; -ZYRT10TA PO
[2018-02-03 11:42] VITALS: BP 125/58; PULSE 73; RESP 18; TEMP 98; O2SAT 98
[2018-02-03] MEDS ORDERED: CEPH-460 PO (12:05)
--- NOTE | 2018-02-03 12:05 | PD ---
HPI Chief Complaint: Wound/Suture/Staple Re-Check Time Seen by Provider: 11:45 Travel History International Travel<30 days: No Contact w/Intl Traveler<30days: No Traveled to known affect area: No History of Present Illness HPI 77-year-old female presents emergency department for reevaluation of the scalp laceration. Patient had sutures placed 7 days ago. They were removed yesterday in her physician's office. She woke up this morning and noticed that she had been bleeding on her pillow and the wound had opened up. She denies any new injury. She has no significant pain. She has no other symptoms to report. PFSH Past Medical History Hx Anticoagulant Therapy: Yes Arthritis: Yes Depression: Yes Heart Rhythm Problems: No Cancer: Yes (breast) Cardiac Catheterization: Yes Cardiovascular Problems: Yes High Cholesterol: Yes Chemotherapy: Yes Congestive Heart Failure: No Diabetes: No Diminished Hearing: Yes (hearing aids) Endocrine: Yes Gastrointestinal Disorders: Yes GERD: Yes Genitourinary: Yes Hypertension: Yes Immune Disorder: No Implanted Vascular Access Dvce: Yes Musculoskeletal: Yes Neurologic: No Psychiatric: Yes Reproductive: No Respiratory: No Radiation Therapy: Yes Thyroid Disease: No Ulcer: Yes (H pylori) Menopausal: Yes : 6 Para: 2 Miscarriage: 4 Past Surgical History Abdominal Surgery: Yes Body Medical Devices: cardiac stent. Cholecystectomy: Yes Coronary Artery Bypass Graft: No Ear Surgery: No Endocrine Surgery: No Eye Surgery: No Gynecologic Surgery: Yes Hysterectomy: Yes (PARTIAL) Mastectomy: Yes (left lumpectomy) Oral Surgery: No Pacemaker: No Other Surgery: Yes (7 BREAST BIOPSIES, LUMPECTOMY X 7) Family History Family Myocardial Infarction: Yes ([place]) Social History Alcohol Use: Yes Tobacco Use: Yes (1 PPD) Substance Use: No Allergies-Medications (Allergen,Severity, Reaction): Coded Allergies: Sulfa (Sulfonamide Antibiotics) (Unverified Allergy, Severe, SORES IN MOUTH, 01/22/18) ampicillin (Unverified Allergy, Mild, Anaphylaxis, 01/22/18) diatrizoate meglumine (Unverified Allergy, Mild, BOILS ON SKIN, 01/22/18) gadobenic acid (Unverified Allergy, Mild, BOILS ON SKIN, 01/22/18) gadodiamide (Unverified Allergy, Mild, BOILS ON SKIN, 01/22/18) gadoteridol (Unverified Allergy, Mild, BOILS ON SKIN, 01/22/18) iodine (Unverified Allergy, Mild, BOILS ON SKIN, 01/22/18) iodixanol (Unverified Allergy, Mild, BOILS ON SKIN, 01/22/18) iohexol (Unverified Allergy, Mild, BOILS ON SKIN, 01/22/18) potassium iodide (Unverified Allergy, Mild, BOILS ON SKIN, 01/22/18) povidone-iodine (Unverified Allergy, Mild, BOILS ON SKIN, 01/22/18) sodium iodide (Unverified Allergy, Mild, BOILS ON SKIN, 01/22/18) sodium iodide (Unverified Allergy, Mild, BOILS ON SKIN, 01/22/18) Reported Meds & Prescriptions Reported Meds & Active Scripts Active Keflex (Cephalexin) 500 Mg Cap 500 Mg PO Q6H 5 Days Doxycycline Hyclate 100 Mg Cap 100 Mg PO BID Reported Trazodone (Trazodone HCl) 50 Mg Tab 50 Mg PO HS Amlodipine-Valsartan 10-160 Mg Tab 1 Tab PO DAILY Rosuvastatin (Rosuvastatin Calcium) 20 Mg Tab 20 Mg PO DAILY Propranolol (Propranolol HCl) 60 Mg Tab 60 Mg PO Q12HR Aspirin 325 Mg Tab 325 Mg PO DAILY Review of Systems Except as stated in HPI: all other systems reviewed are Neg Physical Exam Narrative GENERAL: Well-nourished, well-developed elderly female patient in no acute distress SKIN: Focused skin assessment warm/dry. HEAD: Normocephalic. 7 cm poorly approximated laceration on the right frontal scalp. Bleeding is controlled. No erythema or edema. EYES: No scleral icterus. No injection or drainage. NECK: Supple, trachea midline. No JVD or lymphadenopathy. CARDIOVASCULAR: Regular rate and rhythm without murmurs, gallops, or rubs. RESPIRATORY: Breath sounds equal bilaterally. No accessory muscle use. Data Data Last Documented VS Vital Signs Date Time Temp Pulse Resp B/P (MAP) Pulse Ox O2 Delivery O2 Flow Rate FiO2 02/03/18 11:42 98.0 73 18 125/58 (80) 98 Orders Orders Ed Discharge Order (02/03/18 12:02) MDM Medical Decision Making Medical Screen Exam Complete: Yes Emergency Medical Condition: Yes Medical Record Reviewed: Yes Differential Diagnosis Laceration acute versus subacute versus wound dehiscence versus infected wound Narrative Course 77-year-old female presents emergency department for evaluation of laceration on her scalp. Patient appears without distress. The laceration was sustained a week ago. It is poorly approximated. It is cleansed and loosely approximated. Patient was placed empirically on oral antibiotics. She agrees to follow-up with primary care provider and return immediately with acute worsening symptoms. Procedures Procedure Narrative LACERATION LOCATION: Frontal scalp LENGTH: 7 centimeters NUMBER OF STITCHES/MINA: [2 mina, 3 sutures REPAIR: The area of the laceration was prepped with Betadine and sterilely draped. The laceration was infiltrated with 1% lidocaine with epinephrine the wound was copiously irrigated and explored without evidence of foreign body, tendon injury or neurovascular injury. The wound was closed using mina and 4 -0 Prolene. This was a single layer repair. A sterile dressing was applied. The patient was advised to keep the dressing clean and dry. Patient tolerated the procedure well. Diagnosis Primary Impression: Wound dehiscence Additional Impression: Scalp laceration Qualified Codes: S01.01XA - Laceration without foreign body of scalp, initial encounter Referrals: Primary Care Physician Patient Instructions: General Instructions, Wound Dehiscence (ED) Additional Instructions: Keep the area clean and dry Follow-up the primary care provider Sutures and mina are to be removed in 10-14 days Return immediately to the emergency department with acute worsening symptoms Med/Other Pt SpecificInfo: Prescription(s) given Scripts Cephalexin (Keflex) 500 Mg Cap 500 MG PO Q6H for Infection for 5 Days, #20 CAP 0 Refills Prov: Kristin Nickerson 02/03/18 Disposition: 01 DISCHARGE HOME Condition: Stable Kristin Nickerson Feb 03, 2018 12:05
== END 2018-02-03 12:20 | disposition home or self-care (01) ==
LOC: NEPD 11:40
DX: T81.33XA Disruption of traumatic injury wound repair, initial encounter (principal); S01.01XD Laceration without foreign body of scalp, subsequent encounter; I10 Essential (primary) hypertension; E78.00 Pure hypercholesterolemia, unspecified; K21.9 Gastro-esophageal reflux disease without esophagitis; F17.200 Nicotine dependence, unspecified, uncomplicated; X58.XXXD Exposure to other specified factors, subsequent encounter; Z79.01 Long term (current) use of anticoagulants; Z87.39 Personal history of other diseases of the musculoskeletal system and connective tissue; Z86.79 Personal history of other diseases of the circulatory system; Z87.19 Personal history of other diseases of the digestive system; Z86.59 Personal history of other mental and behavioral disorders; Z85.3 Personal history of malignant neoplasm of breast
CPT/HCPCS: 12002